=== PATIENT | female | born 1995 | race Caucasian/White ===

== ENCOUNTER 2022-06-27 06:54 | Observation (INO) | payer BC, OTHER ==
[2022-06-27] MEDS ORDERED: ONDANSETRON 4 MG/2 ML VIAL IVP STA (07:27)
[2022-06-27] MEDS ORDERED: MORPHINE SULFATE 4 MG/ML SYRINGE IV STA ×2 (07:27→07:57)
[2022-06-27] MEDS ORDERED: SODIUM CHLORIDE 0.9% 1,000 ML IV STA (07:27)
[2022-06-27 07:35] LABS: Basophils % (A) 0 %; Eosinophils # (A) 0.1 k/uL (0-0.7); Eosinophils % (A) 1 %; HCT 38.7 % (34.0-46.0); HGB 13.2 gm/dL (11.4-16.0); Lymphocytes # (A) 1.8 k/uL (1.0-4.8); Lymphocytes % (A) 20 %; MCH 28.9 pg (25.0-35.0); MCV 84.8 fL (80.0-100.0); Mean Platelet Volume 9.6; Monocytes # (A) 0.4 k/uL (0-1.0); Monocytes % (A) 5 %; Neutrophils # (A) 6.4 k/uL (1.3-7.7); Neutrophils % (A) 72 %; Platelet Count 199 k/uL (150-450); RBC 4.56 m/uL (3.80-5.40); RDW 14.7 % (11.5-15.5); WBC 8.9 k/uL (3.8-10.6)
--- NOTE | 2022-06-27 07:37 | ED ---
General Adult HPI - General Chief complaint: Abdominal Pain Stated complaint: GI bleed Time Seen by Provider: 06/27/22 07:04 Source: patient Mode of arrival: EMS Limitations: no limitations - History of Present Illness Initial comments: Dictation was produced using [employer] dictation software. please excuse any grammatical, word or spelling errors. Chief Complaint: 26-year-old female presents emergency department for right upper quadrant abdominal pain History of Present Illness: Patient is a 26-year-old female who has known histor y of gallbladder stones presents to the ER for gallbladder tach. States that she has history of gallbladder disease. She is known about this for several years. Patient has had ultrasounds in the past that demonstrated gallbladders. Patient is having attacks for the last several months however they've been increasing intensity and frequency. Patient also reports having had one bloody bowel movement. States that all her pain is in the right upper quadrant. Denies any pain anywhere else. No nausea vomiting. Patient denies . Denies any fever or constitutional symptoms. The ROS documented in this emergency department record has been reviewed and confirmed by me. Those systems with pertinent positive or negative responses have been documented in the HPI. All other systems are other negative and/or noncontributory. PHYSICAL EXAM: General Impression: Alert and oriented x3, not in acute distress HEENT: Normocephalic atraumatic, extra-ocular movements intact, pupils equal and reactive to light bilaterally, mucous membranes moist. Cardiovascular: Heart regular rate and rhythm Chest: Able to complete full sentences, no retractions, no tachypnea Abdomen: abdomen soft, positive Matos sign, non-distended, no organomegaly Musculoskeletal: Pulses present and equal in all extremities, no peripheral edema Motor: no focal deficits noted Neurological: CN II-XII grossly intact, no focal motor or sensory deficits noted Skin: Intact with no visualized rashes Psych: Normal affect and mood ED course: 26-year-old female presents emergency department for acute onset abdominal pain. She has history of gallbladder disease. Vital signs upon arrival are within acceptable limits. Nursing notes and chart review was performed Laboratory evaluation obtained. CBC metabolic panel is unremarkable. Urinalysis is negative. Patient is not . Ultrasound shows gallstone in the gallbladder neck. Disposition options were discussed with patient. She requested that I contact surgery for further recommendations. Spoke with Dr. Sánchez [facility] consultant for general surgery who reviewed patient's labs. Patient be admitted to Dr. Sánchez with plans for cholecystectomy sometime today. Patient is agreeable to this plan. Was pt. sent in by a medical professional or institution? @No Did you speak to anyone other than the patient for history? @No Did you review nursing and triage notes? @Yes agreed Were old charts reviewed? @No Differential Diagnosis? @ MDM Differential Abdominal Pain Women: Appendicitis, Cholecystitis, diverticulosis, ischemic bowel, pancreatitis, hepatitis, UTI, gastroenteritis, AAA, incarcerated hernia, bowel obstruction, constipation, inflammatory bowel, hepatitis, peptic ulcer disease, splenic inf arction, perforated viscus, vulvitis, ovarian torsion, PID, kidney stone, placenta abruption... This is not meant to be an all-inclusive list EKG interpreted by me (3pts min.)? @ none X-rays interpreted by me (1pt min.)? @ none CT interpreted by me (1pt min.)? @ none U/S interpreted by me (1pt. min.)? @Yes, see above What testing was considered but not performed? (CT, X-rays, U/S, labs)? Why? @CT was considered however patient does not have any pain outside of the right upper quadrant What meds were considered but not given? Why? @Antibiotics were considered however patient does not have signs of infection Did you discuss the management of the patient with other professionals? @Dr. Siddiqui of general surgery Did you reconcile home meds? @ none Was smoking cessation discussed for >3mins.? @ none Was critical care preformed (if so, how long)? @ none Were there social determinants of health that impacted care today? How? (Homelessness, low income, unemployed, alcoholism, drug addiction, transportation, low edu. Level, literacy, decrease access to med. care, detention, rehab)? @No Was there de-escalation of care discussed even if they declined? (Discuss DNR or withdrawal of care, Hospice)? @Not applicable What co-morbidities impacted this encounter? (DM, HTN, Smoking, COPD, CAD, Cancer, CVA, Hep., AIDS, mental health diagnosis, sleep apnea, morbid obesity)? @None Was patient admitted / discharged? @Admitted Undiagnosed new problem with uncertain prognosis? @ none Drug Therapy requiring intensive monitoring for toxicity (Heparin, Nitro, Insulin, Cardizem)? @ none Were any procedures done? @ none Diagnosis/symptom? @Symptomatic cholelithiasis Acute, or Chronic, or Acute on Chronic? @Acute on chronic Uncomplicated (without systemic symptoms) or Complicated (systemic symptoms)? @, Complicated by pain Side effects of treatment? @ none Exacerbation, Progression, or Severe Exacerbation] @Exacerbation Poses a threat to life or bodily function? @ no - Related Data Home Medications Medication Instructions Recorded Confirmed Levothyroxine Sodium 300 mcg PO DAILY 06/27/22 06/27/22 Metoclopramide [Reglan] 10 mg PO TID 06/27/22 06/27/22 Allergies Allergy/AdvReac Type Severity Reaction Status Date / Time Penicillins Allergy Unknown Verified 06/27/22 09:12 Childhood corn AdvReac see comment Verified 06/27/22 09:12 gluten AdvReac see comment Verified 06/27/22 09:12 Review of Systems ROS Statement: Those systems with pertinent positive or pertinent negative responses have been documented in the HPI. ROS Other: All systems not noted in ROS Statement are negative. Past Medical History Past Medical History: Thyroid Disorder History of Any Multi-Drug Resistant Organisms: None Reported Past Surgical History: No Surgical Hx Reported Past Psychological History: No Psychological Hx Reported Smoking Status: Never smoker Past Alcohol Use History: None Reported Past Drug Use History: None Reported General Exam Limitations: no limitations Course Vital Signs 06/27/22 06:56 Pulse Rate 64 Respiratory 18 Rate Blood Pressure 138/74 O2 Sat by Pulse 98 Oximetry Medical Decision Making - Lab Data Result diagrams: 06/27/22 07:19 06/27/22 07:19 Lab Results 06/27/22 06/27/22 06/27/22 Range/Units 07:19 07:19 07:19 WBC 8.9 (3.8-10.6) k/uL RBC 4.56 (3.80-5.40) m/uL Hgb 13.2 (11.4-16.0) gm/dL Hct 38.7 (34.0-46.0) % MCV 84.8 (80.0-100.0) fL MCH 28.9 (25.0-35.0) pg MCHC 34.0 (31.0-37.0) g/dL RDW 14.7 (11.5-15.5) % Plt Count 199 (150-450) k/uL MPV 9.6 Neutrophils % 72 % Lymphocytes % 20 % Monocytes % 5 % Eosinophils % 1 % Basophils % 0 % Neutrophils # 6.4 (1.3-7.7) k/uL Lymphocytes # 1.8 (1.0-4.8) k/uL Monocytes # 0.4 (0-1.0) k/uL Eosinophils # 0.1 (0-0.7) k/uL Basophils # 0.0 (0-0.2) k/uL Sodium (137-145) mmol/L Potassium (3.5-5.1) mmol/L Chloride (98-107) mmol/L Carbon Dioxide (22-30) mmol/L Anion Gap mmol/L BUN (7-17) mg/dL Creatinine (0.52-1.04) mg/dL Est GFR (CKD-EPI)AfAm (>60 ml/min/1.73 sqM) Est GFR (CKD-EPI)NonAf (>60 ml/min/1.73 sqM) Glucose (74-99) mg/dL Calcium (8.4-10.2) mg/dL Magnesium (1.6-2.3) mg/dL Total Bilirubin (0.2-1.3) mg/dL AST (14-36) U/L ALT (4-34) U/L Alkaline Phosphatase (38-126) U/L Total Protein (6.3-8.2) g/dL Albumin (3.5-5.0) g/dL Lipase (23-300) U/L Urine Color Yellow Urine Appearance Clear (Clear) Urine pH 6.5 (5.0-8.0) Ur Specific [place] 1.028 (1.001-1.035) Urine Protein Trace H (Negative) Urine Glucose (UA) Negative (Negative) Urine Ketones Negative (Negative) Urine Blood Negative (Negative) Urine Nitrite Negative (Negative) Urine Bilirubin Negative (Negative) Urine Urobilinogen <2.0 (<2.0) mg/dL Ur Leukocyte Esterase Small H (Negative) Urine RBC <1 (0-5) /hpf Urine WBC 3 (0-5) /hpf Ur Squamous Epith Cells 4 (0-4) /hpf Urine Mucus Moderate H (None) /hpf Urine HCG, Qual Not Detected (Not Detectd) 06/27/22 06/27/22 Range/Units 07:19 07:19 WBC (3.8-10.6) k/uL RBC (3.80-5.40) m/uL Hgb (11.4-16.0) gm/dL Hct (34.0-46.0) % MCV (80.0-100.0) fL MCH (25.0-35.0) pg MCHC (31.0-37.0) g/dL RDW (11.5-15.5) % Plt Count (150-450) k/uL MPV Neutrophils % % Lymphocytes % % Monocytes % % Eosinophils % % Basophils % % Neutrophils # (1.3-7.7) k/uL Lymphocytes # (1.0-4.8) k/uL Monocytes # (0-1.0) k/uL Eosinophils # (0-0.7) k/uL Basophils # (0-0.2) k/uL Sodium 138 (137-145) mmol/L Potassium 4.3 (3.5-5.1) mmol/L Chloride 107 (98-107) mmol/L Carbon Dioxide 23 (22-30) mmol/L Anion Gap 8 mmol/L BUN 15 (7-17) mg/dL Creatinine 0.90 (0.52-1.04) mg/dL Est GFR (CKD-EPI)AfAm >90 (>60 ml/min/1.73 sqM) Est GFR (CKD-EPI)NonAf 88 (>60 ml/min/1.73 sqM) Glucose 115 H (74-99) mg/dL Calcium 9.1 (8.4-10.2) mg/dL Magnesium 1.9 (1.6-2.3) mg/dL Total Bilirubin 0.3 (0.2-1.3) mg/dL AST 20 (14-36) U/L ALT 22 (4-34) U/L Alkaline Phosphatase 74 (38-126) U/L Total Protein 7.3 (6.3-8.2) g/dL Albumin 4.4 (3.5-5.0) g/dL Lipase 91 (23-300) U/L Urine Color Urine Appearance (Clear) Urine pH (5.0-8.0) Ur Specific [place] (1.001-1.035) Urine Protein (Negative) Urine Glucose (UA) (Negative) Urine Ketones (Negative) Urine Blood (Negative) Urine Nitrite (Negative) Urine Bilirubin (Negative) Urine Urobilinogen (<2.0) mg/dL Ur Leukocyte Esterase (Negative) Urine RBC (0-5) /hpf Urine WBC (0-5) /hpf Ur Squamous Epith Cells (0-4) /hpf Urine Mucus (None) /hpf Urine HCG, Qual (Not Detectd) Disposition Clinical Impression: Cholelithiasis Disposition: ADMITTED IP TO THIS [facility] Condition: Fair Referrals: None,Stated [Primary Care Provider] - 1-2 days Decision Time: 10:55
[2022-06-27 07:47] LABS: ALT 22 U/L (4-34); AST 20 U/L (14-36); African American GFR (CKD) >90 (>60 ml/min/1.73 sqM); Albumin 4.4 g/dL (3.5-5.0); Alkaline Phosphatase 74 U/L (38-126); Anion Gap 8 mmol/L; Blood Urea Nitrogen 15 mg/dL (7-17); Calcium 9.1 mg/dL (8.4-10.2); Carbon Dioxide 23 mmol/L (22-30); Chloride 107 mmol/L (98-107); Glucose 115 mg/dL (74-99); Magnesium 1.9 mg/dL (1.6-2.3); Non-African American GFR(CKD) 88 (>60 ml/min/1.73 sqM); Potassium 4.3 mmol/L (3.5-5.1); Sodium 138 mmol/L (137-145); Total Bilirubin 0.3 mg/dL (0.2-1.3); Total Protein 7.3 g/dL (6.3-8.2)
--- NOTE | 2022-06-27 08:16 | US ---
EXAMINATION TYPE: US gallbladder DATE OF EXAM: 06/27/2022 COMPARISON: NONE CLINICAL HISTORY: ruq pain. RUQ pain. *Hx gallstone per patient. TECHNIQUE: Multiple sonographic images of the right upper quadrant are obtained. FINDINGS: EXAM MEASUREMENTS: Liver Length: 17.7 cm Gallbladder Wall: 0.24 cm CBD: 0.46 cm Right Kidney: 10.3 x 5.1 x 4.2 cm MICROELECTRONICS ENGINEER NOTES: Exam is very limited due to overlying bowel gas and patient body habitus. Pancreas: Not well seen. Liver: Limited, appears heterogeneous. Measures upper limits. Gallbladder: Appears distended measuring 10.4 cm in length. Two hyperechoic areas were seen within th e gallbladder. Larger area is seen within the gallbladder neck: 1.4 x 1.4 x 1.2 cm. Areas did not appear to be mobile during exam, limitations however. Evidence for sonographic Matos's sign: Patient was in pain throughout entire exam. CBD: Portions seen appear wnl Right Kidney: Cortex appears thin. Pancreas not well seen on images saved. There is a heterogeneous hyperechoic appearance of the liver. Evaluation for focal masses suboptimal due to the heterogeneity. Finding likely on the basis of diff use fatty infiltration. No surrounding ascites. There is shadowing focus suspicious for gallstone in the gallbladder neck. Tiny nonshadowing polyp incidentally noted. No pericholecystic fluid or abnorma l gallbladder wall thickening. No biliary dilatation. No right-sided hydronephrosis. Cortical thinnin g is present. IMPRESSION: Gallstone in gallbladder neck without secondary ultrasound evidence for acute cholecystit is.
[2022-06-27] MEDS ORDERED: HYDROmorphone 1 MG/ML 1 ML SYRINGE IVP STA (08:50)
[2022-06-27 09:24] LABS: Appearance,Urine Clear (Clear); Bilirubin,Urine Negative (Negative); Blood,Urine Negative (Negative); Color,Urine Yellow; Glucose,Urine (UA) Negative (Negative); Ketones,Urine Negative (Negative); Leukocyte Esterase,Urine Small (Negative); Mucus,Urine Moderate /hpf; Nitrite,Urine Negative (Negative); PH, Urine 6.5 (5.0-8.0); Protein,Urine Trace (Negative); RBC,Urine <1 /hpf (0-5); Specific Gravity,Urine 1.028 (1.001-1.035); Squamous Epithelial Cell,Urine 4 /hpf (0-4); Urobilinogen,Urine <2.0 mg/dL (<2.0); WBC,Urine 3 /hpf (0-5)
[2022-06-27] MEDS ORDERED: HYDROmorphone 1 MG/ML 1 ML SYRINGE IVP PRN (10:05)
[2022-06-27] MEDS ORDERED: NALOXONE 0.4 MG/ML 1 ML VIAL IV PRN (10:05)
[2022-06-27] MEDS: SODIUM CHLORIDE 0.9% 1,000 ML IV SCH ×2 (11:29→17:38)
[2022-06-27] MEDS ORDERED: LACTATED RINGERS 1,000 ML IV ONE (13:38)
[2022-06-27] MEDS ORDERED: HEPARIN SODIUM,PORCINE/PF 5,000 UNIT/0.5 ML SYRINGE SQ ONE (13:46)
[2022-06-27] MEDS ORDERED: ONDANSETRON 4 MG/2 ML VIAL ONE (13:47)
[2022-06-27] MEDS ORDERED: DEXAMETHASONE SOD PHOSPHATE 4 MG/ML 1 ML VIAL IVP ONE (13:53)
[2022-06-27] MEDS ORDERED: ONDANSETRON 4 MG/2 ML VIAL IVP ONE (13:53)
[2022-06-27] MEDS ORDERED: NEOSTIGMINE 1 MG/ML 10 ML VIAL ONE (14:35)
[2022-06-27] MEDS ORDERED: MIDAZOLAM 2 MG/2 ML VIAL ONE (14:35)
[2022-06-27] MEDS ORDERED: GLYCOPYRROLATE 0.2 MG/ML 2 ML VIAL ONE (14:35)
[2022-06-27] MEDS ORDERED: ceFAZolin 1,000 MG VIAL ONE (14:35)
[2022-06-27] MEDS ORDERED: ROCURONIUM 10 MG/ML (5 ML VIAL) IV ONE (14:35)
[2022-06-27] MEDS ORDERED: LIDOCAINE 2% INJ 20 MG/ML (2 ML VIAL) ONE (14:35)
[2022-06-27] MEDS ORDERED: fentaNYL (PF) 50 MCG/ML 2 ML AMP ONE (14:35)
[2022-06-27] MEDS ORDERED: SUCCINYLCHOLINE CHLORIDE 200 MG/10 ML VIAL IV ONE (14:35)
[2022-06-27] MEDS ORDERED: PROPOFOL 10 MG/ML 20 ML VIAL IV ONE (14:35)
--- NOTE | 2022-06-27 14:37 | P.GSHP ---
History of Present Illness H&P Date: 06/27/22 Chief Complaint: Acute cholecystitis 26-year-old female with frequent attacks of right upper quadrant pain associated with nausea and vomiting. Typically attacks will last 3-5 hours in duration. The attacks have been happening with more frequency and lasting longer. She w ent to the ER at [facility] one week ago with similar complaints. She was seen by a surgeon a few years ago and decision was made at that time to hold off on surgery. Patient says her attack that occurred this time was more severe. It is lessening currently. Her labs look good. Ultrasound shows an impacted stone in the gallbladder neck. No change in the color of her skin urine or stool. - Review of Systems Comment: The patient denies any acute changes in vision or hearing, no dysphagia or odynophagia, no chest pain or shortness of breath, no dysuria or hematuria, no headache, no runny nose, no rectal bleeding or melena, no unexplained weight loss Past Medical History Past Medical History: Thyroid Disorder History of Any Multi-Drug Resistant Organisms: None Reported Past Surgical History: No Surgical Hx Reported Past Psychological History: No Psychological Hx Reported Smoking Status: Never smoker Past Alcohol Use History: None Reported Past Drug Use History: None Reported Medications and Allergies Home Medications Medication Instructions Recorded Confirmed Type Levothyroxine Sodium 300 mcg PO DAILY 06/27/22 06/27/22 History Metoclopramide [Reglan] 10 mg PO TID 06/27/22 06/27/22 History Allergies Allergy/AdvReac Type Severity Reaction Status Date / Time Penicillins Allergy Unknown Verified 06/27/22 13:33 Childhood corn AdvReac see comment Verified 06/27/22 13:33 gluten AdvReac see comment Verified 06/27/22 13:33 Surgical - Exam Vital Signs Pulse Resp BP Pulse Ox 64 18 138/74 98 06/27/22 06:56 06/27/22 06:56 06/27/22 06:56 06/27/22 06:56 Physical exam: General: Well-developed, well-nourished HEENT: Normocephalic, sclerae nonicteric Abdomen: Mild right upper quadrant tenderness, nondistended Extremities: No edema Neuro: Alert and oriented Results - Labs 06/27/22 07:19 06/27/22 07:19 Abnormal Lab Results - Last 24 Hours (Table) 06/27/22 06/27/22 Range/Units 07:19 07:19 Glucose 115 H (74-99) mg/dL Urine Protein Trace H (Negative) Ur Leukocyte Esterase Small H (Negative) Urine Mucus Moderate H (None) /hpf Diabetes panel 06/27/22 Range/Units 07:19 Sodium 138 (137-145) mmol/L Potassium 4.3 (3.5-5.1) mmol/L Chloride 107 (98-107) mmol/L Carbon Dioxide 23 (22-30) mmol/L BUN 15 (7-17) mg/dL Creatinine 0.90 (0.52-1.04) mg/dL Glucose 115 H (74-99) mg/dL Calcium 9.1 (8.4-10.2) mg/dL AST 20 (14-36) U/L ALT 22 (4-34) U/L Alkaline Phosphatase 74 (38-126) U/L Total Protein 7.3 (6.3-8.2) g/dL Albumin 4.4 (3.5-5.0) g/dL Calcium panel 06/27/22 Range/Units 07:19 Calcium 9.1 (8.4-10.2) mg/dL Albumin 4.4 (3.5-5.0) g/dL Pituitary panel 06/27/22 Range/Units 07:19 Sodium 138 (137-145) mmol/L Potassium 4.3 (3.5-5.1) mmol/L Chloride 107 (98-107) mmol/L Carbon Dioxide 23 (22-30) mmol/L BUN 15 (7-17) mg/dL Creatinine 0.90 (0.52-1.04) mg/dL Glucose 115 H (74-99) mg/dL Calcium 9.1 (8.4-10.2) mg/dL Adrenal panel 06/27/22 Range/Units 07:19 Sodium 138 (137-145) mmol/L Potassium 4.3 (3.5-5.1) mmol/L Chloride 107 (98-107) mmol/L Carbon Dioxide 23 (22-30) mmol/L BUN 15 (7-17) mg/dL Creatinine 0.90 (0.52-1.04) mg/dL Glucose 115 H (74-99) mg/dL Calcium 9.1 (8.4-10.2) mg/dL Total Bilirubin 0.3 (0.2-1.3) mg/dL AST 20 (14-36) U/L ALT 22 (4-34) U/L Alkaline Phosphatase 74 (38-126) U/L Total Protein 7.3 (6.3-8.2) g/dL Albumin 4.4 (3.5-5.0) g/dL Assessment and Plan (1) Acute cholecystitis due to biliary calculus Narrative/Plan: 26-year-old female with acute cholecystitis. We'll proceed with laparoscopic, possible open cholecystectomy at this time. Risks of bleeding, infection, bile leak, bile duct injury, retained common bile duct stone, trocar injury, c onversion to an open procedure, hernia, anesthesia related complications were reviewed. The patient understands and wishes to proceed. Current Visit: Yes Status: Acute Code(s): K80.00 - CALCULUS OF GALLBLADDER W ACUTE CHOLECYST W/O OBSTRUCTION SNOMED Code(s): 50725464053800
[2022-06-27] MEDS ORDERED: SODIUM CHLORIDE 0.9% 50 ML with ceFAZolin 2 GM IV ONE ×2 (14:38)
[2022-06-27] MEDS ORDERED: BUPIVACAIN-EPI 0.25%-1:200,000 30 ML VIAL SQ ONE (15:02)
[2022-06-27] MEDS ORDERED: LACTATED RINGERS 1,000 ML IV SCH (15:15)
[2022-06-27] MEDS ORDERED: HYDROcodone/APAP 5-325MG 1 EACH TAB PO PRN (15:54)
[2022-06-27] MEDS ORDERED: ACETAMINOPHEN TAB 325 MG TAB PO PRN (15:54)
--- NOTE | 2022-06-27 15:58 | P.OP ---
Date of Procedure: 06/27/22 Procedure(s) Performed: PREOPERATIVE DIAGNOSIS: Acute cholecystitis POSTOPERATIVE DIAGNOSIS: Same PROCEDURE: Laparoscopic cholecystectomy SURGEON: Artur EBL: Minimal see anesthesia record ANESTHESIA: Gen. COMPLICATIONS: None OPERATIVE PROCEDURE: The patient was brought and placed on the operating room table in the supine position. The patient was placed under general anesthesia at that time. The abdomen was prepped and draped in the usual sterile fashion. A small vertical infraumbilical incision was made. The fascia was grasped with the Fallon forceps. The fascia was retracted anteriorly. The Veress needle was advanced into the peritoneal cavity. The saline drop test was normal. Insufflation took place up to 15 mmHg. A 5 mm optical trocar was advanced and the peritoneal cavity. 2 additional 5 mm trochars were placed in the right upper quadrant under direct visualization. A 12 mm trocar was advanced into the epigastric incision site. The gallbladder was distended with an edematous gallbladder wall. There was no gangrenous changes. The gallbladder was retracted superiorly and laterally. The peritoneum overlying the infundibulum was bluntly dissected. The patient's cystic duct was visualized. The junction between the cystic duct common and hepatic duct was identified. The critical view of safety was achieved after blunt dissection. The cystic duct was then divided after placement of 3 12 mm clips on the patient's side and one on the specimen side. The cystic artery was identified and clipped as well. A small vessel was seen along the gallbladder fossa and clipped as well. The gallbladder was then removed from the liver bed using electrocautery. The gallbladder was then removed from the epigastric trocar site with an Endo Catch bag. The gallbladder fossa was irrigated with saline. There was no evidence of any bleeding or biliary drainage seen. The fascia at the 12 millimeter site was closed using a Kavin-Margaret 0 Vicryl stitch. The trochars were then removed. The skin at all 4 sites was closed using a 4-0 Monocryl stitch. Skin glue was utilized on the incision sites. At the end of this procedure the sponge and needle counts were correct. DISPOSITION: Stable to the recovery room
[2022-06-27] MEDS: KETOROLAC 15 MG/ML 1 ML VIAL IVP SCH (16:10)
[2022-06-27] MEDS: PANTOPRAZOLE 40 MG/10 ML VIAL IV SCH (17:36)
[2022-06-27] MEDS: HEPARIN SODIUM,PORCINE/PF 5,000 UNIT/0.5 ML SYRINGE SQ SCH ×2 (17:37→17:54)
[2022-06-27] MEDS ORDERED: ONDANSETRON 4 MG/2 ML VIAL IVP PRN (20:33)
[2022-06-28] MEDS: HEPARIN SODIUM,PORCINE/PF 5,000 UNIT/0.5 ML SYRINGE SQ SCH ×2 (00:34→08:49)
[2022-06-28] MEDS: KETOROLAC 15 MG/ML 1 ML VIAL IVP SCH ×3 (00:34→11:17)
[2022-06-28] MEDS: SODIUM CHLORIDE 0.9% 1,000 ML IV SCH ×2 (00:37→08:49)
[2022-06-28] MEDS ORDERED: ONDANSETRON 4 MG/2 ML VIAL IVP PRN (07:00)
[2022-06-28] MEDS ORDERED: HYDROmorphone 0.5 MG/0.5 ML SYRINGE IVP PRN (07:00)
[2022-06-28 08:04] VITALS: RESP 14
[2022-06-28] MEDS: PANTOPRAZOLE 40 MG/10 ML VIAL IV SCH (08:49)
--- NOTE | 2022-06-28 13:51 | P.DS ---
Providers Date of admission: 06/27/22 10:06 Expected date of discharge: 06/28/22 Attending physician: Jonas Siddiqui Primary care physician: Stated None Hospital Course: Discharge diagnosis 1. Acute cholecystitis status post laparoscopic cholecystectomy Hospital course 26-year-old female with frequent attacks of right upper quadrant pain associated with nausea and vomiting. Typically attacks will last 3-5 hours in duration. The attacks have been happening with more frequency and lasting longer. She went to the ER at [facility] one week ago with similar complaints. She was seen by a surgeon a few years ago and decision was made at that time to hold off on surgery. Patient says her attack that occurred this time was more severe. It is lessening currently. Her labs look good. Ultrasound shows an impacted stone in the gallbladder neck. Patient is status post laparoscopic cholecystectomy. She tolerated surgery well. Her pain is controlled. She has been up and ambulating. She is tolerating diet. She is afebrile. She is stable for discharge. Physician Billet Assembler note has been reviewed by physician. Signing provider agrees with the documented findings, assessment, and plan of care. Patient Condition at Discharge: Stable Plan - Discharge Summary Discharge Rx Participant: Yes New Discharge Prescriptions: New oxyCODONE HCL [OxyIR] 5 mg PO Q6H PRN 3 Days #6 tab PRN Reason: Breakthrough Pain Ibuprofen [Motrin] 600 mg PO Q8HR PRN #30 tab PRN Reason: Pain Acetaminophen Tab [Tylenol Tab] 650 mg PO Q4H PRN #30 tablet PRN Reason: Pain Continue Levothyroxine Sodium 300 mcg PO DAILY Metoclopramide [Reglan] 10 mg PO TID Discharge Medication List Levothyroxine Sodium 300 mcg PO DAILY 06/27/22 [History] Metoclopramide [Reglan] 10 mg PO TID 06/27/22 [History] oxyCODONE HCL [OxyIR] 5 mg PO Q6H PRN 3 Days #6 tab 06/27/22 [Rx] Acetaminophen Tab [Tylenol Tab] 650 mg PO Q4H PRN #30 tablet 06/28/22 [Rx] Ibuprofen [Motrin] 600 mg PO Q8HR PRN #30 tab 06/28/22 [Rx] Follow up Appointment(s)/Referral(s): None,Stated [Primary Care Provider] - 1-2 days Jonas Siddiqui MD [Medical Doctor] - 1 Week Activity/Diet/Wound Care/Special Instructions: No driving while taking OxyIR No lifting over 10 pounds You may shower. No soaking or tub baths for 2 weeks Very light activity until you are reevaluated at your follow up appointment with your surgeon Low fat diet Discharge Disposition: HOME SELF-CARE
[2022-06-28 14:55] VITALS: BP 119/71; PULSE 72; TEMP 97.3
== END 2022-06-28 15:54 | disposition home or self-care (01) ==
LOC: EC 06:54 → 6NMEDSUR 10:06 → 4SSUR 16:25
PROVIDERS: ADMIT Surgery; ATTEND Surgery
DX: K80.12 Calculus of gallbladder with acute and chronic cholecystitis without obstruction (principal); E07.9 Disorder of thyroid, unspecified; Z79.890 Hormone replacement therapy; Z79.899 Other long term (current) drug therapy; Z88.0 Allergy status to penicillin; Z91.018 Allergy to other foods; Z91.09 Other allergy status, other than to drugs and biological substances
CPT/HCPCS: 47562; 96361; 96374; 96375; 99285; 36415; 94760; 81025 ×2; 88304; 80053; 83690; 83735; 85025; 81001; 76705; G0378 ×3; J2250; J0330; J2270; J1100; J2710; J0690 ×2; J2405; J3010; J1170; J1885 ×2; J2704; C9113 ×2; J1644 ×2; J2001; 96376